=== PATIENT | female | born 1985 | race Caucasian/White ===

== ENCOUNTER 2016-08-25 01:34 | Emergency (ER) | payer BC ==
[~2016-08-25] VITALS: Ht 165.1 cm; Wt 49.0 kg
[2016-08-25] MEDS ORDERED: LATUDA20 MG PO (01:43)
[2016-08-25] MEDS ORDERED: LAMICTAL200 MG ORAL (01:43)
--- NOTE | 2016-08-25 02:01 | Emergency Room Report ---
History of Present Illness General Chief Complaint: General Complaint Source: Patient Present Illness HPI This is a 31-year-old female with history bipolar. She presents with chief complaint of thing that she may be drug. Reason for this she felt like "drifting away." She was at a green party and had 2 mixed drinks, glass of champagne , and a piece of chocolate with marijuana. Denies any other drug use. Had a history of MDMA and amphetamine use. But nothing recent. No suicidal thought homicidal thought. Allergies: Coded Allergies: No Known Allergies (Unverified , 08/25/16) Patient History Past Medical History: see triage record, old chart reviewed, psych hx Past Surgical History: other Pertinent Family History: none Social History: Reports: alcohol use Last Menstrual Period: 07/25/2016 Now: No : 0 Para: 0 Immunizations: other Reviewed Nursing Documentation: PMH: Agreed, PSxH: Agreed Nursing Documentation-PMH History Of Psychiatric Problem: Yes - Bipolar D/O Review of Systems Eye: Denies: blurred vision, eye pain ENT: Denies: ear pain, nose congestion, throat swelling Respiratory: Denies: cough, shortness of breath Cardiovascular: Denies: chest pain, palpitations Gastrointestinal: Denies: abdominal pain, diarrhea, nausea, vomiting Musculoskeletal: Denies: back pain, joint pain Skin: Denies: rash Neurological: Denies: headache, numbness Endocrine: Denies: increased thirst, increased urine Hematologic/Lymphatic: Denies: easy bruising All Other Systems: negative except mentioned in HPI Physical Exam Vital Signs Date Time Temp Pulse Resp B/P Pulse Ox O2 Delivery O2 Flow Rate FiO2 08/25/16 01:36 99.0 135 16 113/84 100 Room Air vitals with tachycardia Sp02 EP Interpretation: reviewed, normal General Appearance: well appearing, no apparent distress, alert Head: normocephalic, atraumatic Eyes: bilateral eye EOMI, bilateral eye PERRL ENT: hearing grossly normal, normal pharynx Neck: full range of motion, supple, no meningismus Respiratory: chest non-tender, lungs clear, normal breath sounds Cardiovascular #1: regular rate, rhythm, no murmur Gastrointestinal: normal bowel sounds, non tender, no mass, no organomegaly, no bruit, non-distended Musculoskeletal: back normal, gait/station normal, normal range of motion Psychiatric: mood/affect normal Skin: warm/dry Medical Decision Making Diagnostic Impression: Primary Impression: Acute drug intoxication Qualified Codes: F19.920 - Other psychoactive substance use, unspecified with intoxication, uncomplicated ER Course Patient presents with not feeling well after taking marijuana chocolate and alcohol. Probably a "bad trip." She fell better now. No evidence of other toxidrome. Heart rate low 100. We'll discharge home. Last Vital Signs Date Time Temp Pulse Resp B/P Pulse Ox O2 Delivery O2 Flow Rate FiO2 08/25/16 01:36 99.0 135 16 113/84 100 Room Air Status: improved Disposition: HOME, SELF-CARE Condition: Stable Additional Instructions: Followup with your Dr. in 7 days. Return for worsening symptoms. NILS GORDON M.D. Aug 25, 2016 02:01
[2016-08-25 02:06] VITALS: BP 113/84
[2016-08-25 02:34] LABS: APPEARANCE,URINE SLIGHTLY CLOUDY; KETONES,URINE NEGATIVE (NEGATIVE); LEUKOCYTE ESTERASE ,URINE 2+ (NEGATIVE); NITRITE,URINE NEGATIVE (NEGATIVE); PH,URINE 6 (4.5-8.0); PROTEIN,URINE NEGATIVE (NEGATIVE); UROBILINOGEN,URINE NORMAL MG/DL (0.0-1.0)
[2016-08-25 02:48] LABS: BACTERIA,URINE FEW /HPF; SQUAMOUS EPITHELIAL CELL,UR MODERATE /LPF (NONE/OCC)
[2016-08-25 03:00] VITALS: BP 120/71
[2016-08-25 03:31] VITALS: BP 120/71
== END 2016-08-25 03:40 | disposition home or self-care (01) ==
LOC: EMR 02:27
DX: F12.929 Cannabis use, unspecified with intoxication, unspecified (principal); Z72.89 Other problems related to lifestyle; F31.9 Bipolar disorder, unspecified
CPT/HCPCS: 36415; 80300; 81003; 81025; 96360; 99284; G0480; 80329